=== PATIENT | female | born 1965 | race African-American/Black ===

== ENCOUNTER 2023-08-24 08:31 | Outpatient (CLI) | payer BC | END 2023-08-24 08:32 | disposition home or self-care (01) | LOC: CSHULT 08:31 | PROVIDERS: ATTEND Physician Assistant Medical | DX: R79.89 Other specified abnormal findings of blood chemistry (principal); Z90.49 Acquired absence of other specified parts of digestive tract; K83.9 Disease of biliary tract, unspecified | CPT/HCPCS: 76700 ==

== ENCOUNTER 2023-09-21 09:03 | Outpatient (CLI) | payer BC | END 2023-09-21 09:04 | disposition home or self-care (01) | LOC: CSHMRI 09:03 | PROVIDERS: ATTEND Physician Assistant Medical | DX: K83.8 Other specified diseases of biliary tract (principal); R93.2 Abnormal findings on diagnostic imaging of liver and biliary tract | CPT/HCPCS: 74183; 82565 ==